=== PATIENT | female | born 1995 | race Caucasian/White ===

== ENCOUNTER 2017-02-09 12:51 | Emergency (ER) | payer MEDICAID ==
[~2017-02-09] VITALS: Ht 165.1 cm; Wt 53.6 kg
[2017-02-09 13:20] VITALS: BP 103/72
[2017-02-09] MEDS ORDERED: AZITHROMYCIN 250 MG TAB PO ONE (17:30)
[2017-02-09] MEDS ORDERED: cefTRIAXone 250 MG in LIDOCAINE 1% ED 0.9 ML IM ONE (17:30)
[2017-02-09] MEDS ORDERED: metroNIDAZOLE 250 MG TAB PO ONE (17:55)
[2017-02-09 18:18] VITALS: BP 104/73
[2017-02-11 07:15] LABS: CHLAMYDIA TRACHOMATIS AMP DNA Negative (Negative)
== END 2017-02-09 18:16 | disposition home or self-care (01) ==
LOC: MED 12:51
DX: N89.8 Other specified noninflammatory disorders of vagina (principal)
CPT/HCPCS: 36415; 87205; 87210; 96372; 99284; J0696; J2001; 81002; 81025; 87491